=== PATIENT | male | born 1985 | race Caucasian/White ===

== ENCOUNTER → 2017-05-02 | Outpatient (CLI) | payer OTHER ==
--- NOTE | 2017-05-02 16:23 | XCELERA REPORT ---
[address] [address] Upper Extremity Arterial Evaluation Name: KENNETH WINTER Age: 32 yrs Gender: Male : 1985 Patient Status: Outpatient Patient Location: Study Date: 05/02/2017 01:05 PM Procedure: A duplex scan of the upper extremity arteries was performed bilaterally. Reason For Study: PAIN Ordering Physician: VIDAL LOMBARDI Performed By: Duncan Flores Measurements and Calculations Right Left Mid SCLA PSV -137.1 -99.9 cm/sec Ax A PSV -84.9 -137.5 cm/sec Dist Brach A PSV 87.7 82.7 cm/sec Dist Rad A PSV 84.4 81.6 cm/sec Dist Ulnar A PSV 90.4 84.0 cm/sec Ax A PSV -84.9 -137.5 cm/sec Dist Brach A PSV 87.7 82.7 cm/sec Dist Rad A PSV 84.4 81.6 cm/sec Dist Ulnar A PSV 90.4 84.0 cm/sec Mid SCLA PSV -137.1 -99.9 cm/sec Right Side Arterial Evaluation Normal velocity and triphasic waveforms noted from the Common Carotid artery to the forearm vessels. 0% stenosis noted. PPG's are normal. Left Side Arterial Evaluation Normal velocity and triphasic waveforms noted from the Common Carotid artery to the forearm vessels. 0% stenosis noted. PPG's are normal. Interpretation Summary No hemodynamically significant lesions in the bilateral upper extremities, on duplex imaging, at rest. : MARIA C, Marito Shanks >
== END ==
LOC: SP 12:32
DX: M79.629 Pain in unspecified upper arm (principal); M79.89 Other specified soft tissue disorders
CPT/HCPCS: 93930

== ENCOUNTER 2018-04-14 15:06 | Emergency (ER) | payer OTHER ==
--- NOTE | 2018-04-14 15:49 | RADIOLOGY REPORT (SQ) ---
EXAM DESCRIPTION: HAND RIGHT 3 VIEWS COMPLETED DATE/TIME: 04/14/2018 3:31 pm REASON FOR STUDY: hand injury . Fence fell on hand. Pain all over. COMPARISON: None. EXAM PARAMETERS: NUMBER OF VIEWS: Three views. TECHNIQUE: AP, lateral and oblique radiographic images acquired of the right hand. LIMITATIONS: None. FINDINGS: MINERALIZATION: Normal. BONES: There is a displaced, impacted, comminuted fracture of the 5th metacarpal neck. SOFT TISSUES: There is soft tissue swelling at the lateral aspect of the hand. No radiopaque foreign body is identified. IMPRESSION: Impacted, displaced fracture of the 5th metacarpal neck with overlying soft tissue swell ing. TECHNICAL DOCUMENTATION: JOB ID: [id number] [employer]- All Rights Reserved Reading location - IP/workstation name: [email or web address]
--- NOTE | 2018-04-14 16:16 | ER Document Report ---
HPI - HPI Pain Level: 3 Notes: Patient is an otherwise healthy 33-year-old male who presents with chief complaint of right hand pain along the fifth digit. Patient reports that he was fixing a fence when a magno of wind blew in the fence landed onto his hand. Past Medical History - General Information source: Patient - Social History Smoking Status: Never Smoker Frequency of alcohol use: None Drug Abuse: None Family History: Reviewed & Not Pertinent - Medical History Medical History: Negative Surgical Hx: Negative - Immunizations Immunizations up to date: Yes Hx Diphtheria, Pertussis, Tetanus Vaccination: Yes Vertical Provider Document - CONSTITUTIONAL Agree With Documented VS: Yes Notes: PHYSICAL EXAMINATION: GENERAL: Well-appearing, well-nourished and in no acute distress. HEAD: Atraumatic, normocephalic. EYES: Pupils equal round extraocular movements intact, conjunctiva are normal. ENT: Nares patent NECK: Normal range of motion LUNGS: No respiratory distress Musculoskeletal: Normal range of motion, swelling and erythema and ecchymosis noted to right hand over the fifth metatarsal. Capillary refill less than 3 seconds, normal motor and sensation distal to injury. NEUROLOGICAL: Normal speech, normal gait. PSYCH: Normal mood, normal affect. SKIN: Warm, Dry, normal turgor, no rashes or lesions noted. - INFECTION CONTROL TRAVEL OUTSIDE OF THE [place] IN LAST 30 DAYS: No Course - Re-evaluation Re-evalutation: Right fifth metatarsal fracture, mildly displaced as per radiology report. Will place in splint and refer to OrthO. Patient declines the need for any pain medication, states he will take ibuprofen at home. Radiology report given to patient as [place] - Vital Signs Vital signs: Temp Pulse Resp BP Pulse Ox 98.4 F 80 16 132/83 H 96 04/14/18 15:14 04/14/18 15:14 04/14/18 15:14 04/14/18 15:14 04/14/18 15:14 Procedures - Immobilization Right hand Pre-Proc Neuro Vasc Exam: Normal Immobilizer type: Ulnar Performed by: PCT Post-Proc Neuro Vasc Exam: Normal Discharge - Discharge Clinical Impression: Boxers fracture Qualifiers: Encounter type: initial encounter Fracture type: open Qualified Code(s): S62.339B - Displaced fracture of neck of unspecified metacarpal bone, initial encounter for open fracture Condition: Stable Disposition: HOME, SELF-CARE Additional Instructions: Fractured Fifth Metacarpal (Boxer's) You have a fracture of the fifth metacarpal bone in the hand, often called a Boxer's Fracture. The fracture is usually caused by striking the knuckle against a hard surface -- such as hitting a wall with the fist. This fracture heals well. Some degree of angle in the fracture is perfectly acceptable, resulting in only a slightly rounder knuckle. Your physician has determined whether your fracture could benefit from "setting", and has outlined a treatment plan for you. The usual treatment is splinting for four to six weeks -- a cast is not usually necessary. At first, the injury should be elevated and ice packed. Contact the doctor at once if swelling or pain becomes severe, or if numbness develops. Please follow-up with orthopedics, call them tomorrow to try to schedule an appointment. I am enclosing contact info for the orthopedic group associated with [facility]. [place] I am also including a copy of your radiology report. Take ibuprofen 600 mg every 6 hours , ice and elevate. Referrals: CALISTA DIOR, DO [ACTIVE STAFF] - Follow up as needed
[2018-04-14 17:18] VITALS: BP 141/86
== END 2018-04-14 17:05 | disposition home or self-care (01) ==
LOC: ER 15:06
PROC: 2W3CX1Z Immobilization of Right Lower Arm using Splint (ICD-10-PCS; principal; 2018-04-14)
DX: S62.339 Displaced fracture of neck of unspecified metacarpal bone (principal); M79.641 Pain in right hand; X37.0XXA Hurricane, initial encounter
CPT/HCPCS: 99283